=== PATIENT | male | born 1995 | race Caucasian/White ===

== ENCOUNTER 2018-01-11 13:05 | Emergency (ER) | payer BC ==
[2018-01-11 13:06] VITALS: BP 145/89; PULSE 85; RESP 20; TEMP 99.2; O2SAT 95
[2018-01-11 15:00] VITALS: TEMP 98.4
--- NOTE | 2018-01-11 15:10 | PD ---
HPI Chief Complaint: Musculoskeletal Complaint Time Seen by Provider: 14:46 Travel History International Travel<30 days: No Contact w/Intl Traveler<30days: No Traveled to known affect area: No History of Present Illness HPI 22-year-old male presents emergency department for evaluation of left knee pain that started approximately 2 days ago. Says that he woke up with the knee swollen and had pain with bending. Says his pain is moderate in severity, has pain to the back of the knee as well. Patient denies any numbness or tingling. Says that he is able to bend his knee but it is very painful. He denies fevers or chills although says he has had upper respiratory type of symptoms over the last couple of days. He denies any direct trauma to the knee. Says he has a history of his knee swelling up but usually this resolves with elevation and rest. Patient says that this has not been helping him so he decided to come to the emergency department today for evaluation. He denies chronic medical issues medication use. PFSH Past Medical History Medical History: Denies Significant Hx Diminished Hearing: No Influenza Vaccination: No Social History Alcohol Use: Yes Tobacco Use: No Allergies-Medications (Allergen,Severity, Reaction): Coded Allergies: No Known Allergies (Unverified , 01/11/18) Reported Meds & Prescriptions Reported Meds & Active Scripts Active Hydrocodone-Acetaminophen 5-325 mg Tab 1 Tab PO Q6H PRN 3 Days Review of Systems Except as stated in HPI: all other systems reviewed are Neg Physical Exam Narrative GENERAL: Well-nourished, well-developed patient, in NAD SKIN: Focused skin assessment warm/dry. No rashes or lesions. HEAD: Normocephalic. Atraumatic. EYES: No scleral icterus. No injection or drainage. NECK: Supple, trachea midline. No JVD or lymphadenopathy. No meningismus. CARDIOVASCULAR: Regular rate and rhythm without murmurs, gallops, or rubs. RESPIRATORY: Breath sounds equal bilaterally. No accessory muscle use. No wheezes, rales, or rhonchi MUSCULOSKELETAL: No cyanosis, or edema. Left knee-significant edema superior to the patella. Patella mobile without exquisite tenderness, limited range of motion although he is able to flex his knee, neurovascularly intact. No evidence of erythema or lymphangiopathic. BACK: Nontender without obvious deformity. No CVA tenderness. Data Data Last Documented VS Vital Signs Date Time Temp Pulse Resp B/P (MAP) Pulse Ox O2 Delivery O2 Flow Rate FiO2 01/11/18 15:00 98.4 01/11/18 13:06 85 20 145/89 (107) 95 Orders Orders Knee, Complete (4vws) (01/11/18 ) Acetamin-Hydrocod 325-5 Mg (Renner 5-325 (01/11/18 15:15) Support Splint (01/11/18 16:18) Synovial Fluid Crystals (01/11/18 16:16) Synovial Fl Cell Count + Diff (01/11/18 16:16) Fluid Culture And Gram Stain (01/11/18 16:16) Ed Discharge Order (01/11/18 16:24) Labs Laboratory Tests Test 01/11/18 16:30 [facility] Medical Decision Making Medical Screen Exam Complete: Yes Emergency Medical Condition: Yes Differential Diagnosis Left knee effusion, bursitis, septic joint, sprain Narrative Course 22-year-old male presents emergency department for evaluation of left knee pain that started approximately 2 days ago. Says that he woke up with the knee swollen and had pain with bending. Says his pain is moderate in severity, has pain to the back of the knee as well. Patient denies any numbness or tingling. Says that he is able to bend his knee but it is very painful. He denies fevers or chills although says he has had upper respiratory type of symptoms over the last couple of days. He denies any direct trauma to the knee. Says he has a history of his knee swelling up but usually this resolves with elevation and rest. Patient says that this has not been helping him so he decided to come to the emergency department today for evaluation. He denies chronic medical issues medication use. Vital signs are stable. Afebrile. Heart rate 85. X-ray ordered to rule out acute process although I have a low suspicion based off of patient's history. X-ray without acute process except for a large joint effusion. Hydrocodone for pain. I discussed my findings and my attending today. We offered a an arthrocentesis. Discussed the risk versus benefits. Arthrocentesis performed with approximately 40 cc of serosanguineous fluid. These were sent off for evaluation. Advised patient that he should receive a phone call if there were concerns regarding this fluid. I strongly advised that he follow-up with orthopedic physician for further treatment and evaluation. Advised to continue compression to reduce amount of fluid that he may build up on his knee. Hydrocodone for outpatient use. Advised to use sparingly. He states understanding will comply. Procedures Procedure Narrative Proposed plan of evaluation and treatment discussed with the patient who verbalizes an understanding and agrees to proceed. Using sterile technique, the arthrocentesis site was identified and thoroughly cleansed with iodine. This location was on the superior medial aspects of the patella. The area was fluctuant and was positively identified as an area of pain. Using an 18-gauge needle on a 35 cc syringe, inserted into the area and withdrew approximately 40 cc of serosanguineous fluid. Patient tolerated well. The effusion decreased significantly. The fluid was sent for evaluation to the lab. The site was covered, advised patient on wound care. Diagnosis Primary Impression: Joint effusion Referrals: Orthopedist Departure Forms: Tests/Procedures, Work Release Enter return to work date: January 14, 2018 Additional Instructions: Use ice or heat for symptom relief. If no contraindications, you may use Tylenol or Motrin per package instructions for your pain. Elevate the joint above the heart to reduce swelling. You may use compression with Theo wrap or similar to reduce swelling. If symptoms persist or worsen, return to the emergency department. Follow up with your primary care physician within 2 days. I highly recommend he follow-up with an orthopedic physician for further evaluation and treatment. Follow-up with the primary care physician as well. Your joint fluid was sent off for evaluation in the lab. Scripts Hydrocodone-Acetaminophen (Hydrocodone-Acetaminophen) 5-325 mg Tab 1 TAB PO Q6H Y for PAIN for 3 Days, #12 TAB 0 Refills Prov: Dane Miguel MD 01/11/18 Disposition: 01 DISCHARGE HOME Condition: Stable Cindi Strong January 11, 2018 15:10
[2018-01-11] MEDS ORDERED: ACETAMINOPHEN/HYDROcodone 325 MG/5 MG TAB PO ONE (15:15)
--- NOTE | 2018-01-11 15:33 | RADRPT ---
EXAM DATE: 01/11/2018 3:30 PM EDT AGE/SEX: 22 years / Male INDICATIONS: Left posterior knee pain & severe swelling with no known injury x 2 days. CLINICAL DATA: This is the patient's initial encounter. Patient reports that signs and symptoms have been present for 2 days and indicates a pain score of 8/10. MEDICAL/SURGICAL HISTORY: None. . Right ACL repair. COMPARISON: No prior [place] [facility] exams available for comparison. FINDINGS: No fracture is seen. The knee joint is aligned. There is a large effusion. Osseous density is normal. Soft tissues are unremarkable. No radiopaque foreign bodies seen. CONCLUSION: Large joint effusion. Electronically signed by: Neto Baker MD 01/11/2018 3:31 PM EDT
[2018-01-11] MEDS ORDERED: HYDR-3516 PO (16:20)
[2018-01-11 18:01] LABS: WBC, SYNOVIAL FLUID 23500 /MM3 (0-200)
== END 2018-01-11 16:38 | disposition home or self-care (01) ==
LOC: PHED 13:05 → PHEFT 16:38
DX: M25.461 Effusion, right knee (principal)
CPT/HCPCS: 20610; 73564; 87070; 87205; 89051; 89060